=== PATIENT | female | born 1980 | race Two or more races ===

== ENCOUNTER 2020-11-25 11:46 | Emergency (ER) | payer SELFPAY ==
[~2020-11-25] VITALS: Ht 160 cm; Wt 140.0 kg
[2020-11-25 13:49] LABS: BILIRUBIN,URINE NEGATIVE (NEG); CLARITY,URINE CLEAR; COLOR,URINE YELLOW; NITRITE,URINE NEGATIVE (NEG); PH,URINE 6.5 (<5.0-8.0); PROTEIN,URINE NEGATIVE (NEG-TRACE); UROBILINOGEN,URINE 0.2 mg/dL (0.2 mg/dL)
[2020-11-25 14:04] LABS: RBC,URINE 20-40 /HPF (0-2)
[2020-11-25 14:06] LABS: BASO # 0.1 x10^3/uL (0.0-0.2); BASO % 1 % (0-3); EOS # 0.3 x10^3/uL (0.0-0.7); EOS % 3 % (0-3); HEMATOCRIT 38.8 % (36.0-47.0); HEMOGLOBIN 13.1 g/dL (12.0-15.5); LYMPH # 2.6 x10^3/uL (1.0-4.8); LYMPH % 25 % (24-48); MEAN CORPUSCULAR HEMOGLOBIN 30 pg (25-35); MEAN CORPUSCULAR HGB CONC 34 g/dL (31-37); MEAN CORPUSCULAR VOLUME 88 fL (79-100); MONO # 0.6 x10^3/uL (0.0-1.1); MONO % 6 % (0-9); NEUT # 7.2 x10^3/uL (1.8-7.7); NEUT % 67 % (31-73); PLATELET COUNT 313 x10^3/uL (140-400); RED BLOOD COUNT 4.39 x10^6/uL (3.50-5.40); WHITE BLOOD COUNT 10.8 x10^3/uL (4.0-11.0)
[2020-11-25 14:06] LABS: WBC,URINE RARE /HPF (0-4)
[2020-11-25 14:07] LABS: AMORPHOUS SEDIMENT,UR PRESENT /HPF; BACTERIA,URINE 0 /HPF (0-FEW)
[2020-11-25 14:15] LABS: CALCIUM 8.7 mg/dL (8.5-10.1); CREATININE 0.6 mg/dL (0.6-1.0); GFR 110.7; POTASSIUM 3.8 mmol/L (3.5-5.1)
[2020-11-25 14:21] LABS: ALBUMIN 3.4 g/dL (3.4-5.0); ALBUMIN/GLOBULIN RATIO 0.8 (1.0-1.7); TOTAL BILIRUBIN 0.3 mg/dL (0.2-1.0); TOTAL PROTEIN 7.6 g/dL (6.4-8.2)
--- NOTE | 2020-11-25 14:47 | RAD ---
US OB <14 WKS +TV History: Reason: vag bleeding in / Spl. Instructions: / History: Comparison: None. Technique: Grayscale and color Doppler imaging of the pelvis was performed using transabdominal and t ransvaginal technique. Findings: The uterus measures 10.0 x 5.2 x 4.7 cm. Both hips is noted. No definite gestational sac identified. Thickened endometrium with heterogeneous and hyperechoic appe arance. Fluid within the lower endometrium. Right ovary measures 3.4 x 2.2 x 1.8 cm. Left ovary measures 3.8 x 2.2 x 2.2 cm. Dominant right ovarian follicle measures 2.0 cm. Normal Doppler flow to the ovaries bilaterally. No adnexal masses are seen. IMPRESSION: 1. No definite intrauterine gestational sac identified with thickened heterogeneous and hyperechoic appearance of the endometrium. Findings may represent failed early . Recommend comparison wi th prior imaging studies. Electronically signed by: Figueroa Christianson DO (11/25/2020 2:45 PM) [id number]
[2020-11-25 15:53] VITALS: BP 148/101
[2020-11-25] MEDS: MORPHINE SULFATE 10 MG/ML VIAL. IV ONE (16:18)
--- NOTE | 2020-11-25 16:21 | PHYS DOC ---
Past Medical History Past Medical History: No Pertinent History Past Surgical History: No Surgical History Smoking Status: Never Smoker Alcohol Use: None General Adult EDM: Chief Complaint: VAGINAL BLEEDING HPI: HPI: Patient is a 39 year old female 2 para 1 currently 7 weeks presented to the ED today complaining of vaginal bleeding in , symptoms began 7 days ago. She states symptoms began as spotting 7 days ago and since yesterday she has been passing bigger clots. She states she was seen at [facility] a week ago and they did an ultrasound and they told her she was 6 weeks with a sac but they told her they could not see the baby well. Patient is also complaining of moderate low back cramping pain, also complaining of pelvic pain. Patient states she was also treated for STDs at [facility]. She states she is on antibiotics for STDs right now though she does not know the name. She states her periods are irregular and her last menstrual cycle was in June. Review of Systems: Review of Systems: Constitutional: Denies fever or chills. [] Eyes: Denies change in visual acuity. [] HENT: Denies nasal congestion or sore throat. [] Respiratory: Denies cough or shortness of breath. [] Cardiovascular: Denies chest pain or edema. [] GI: Reports vaginal bleeding in , pelvic pain, denies nausea, vomiting, bloody stools or diarrhea. [] : Denies dysuria. [] Musculoskeletal: Reports cramping low back pain Integument: Denies rash. [] Neurologic: Denies headache, focal weakness or sensory changes. [] Psychiatric: Denies depression or anxiety. [] Heart Score: C/O Chest Pain: N/A Risk Factors: Risk Factors: DM, Current or recent (<one month) smoker, HTN, HLP, family history of CAD, obesity. Risk Scores: Score 0 - 3: 2.5% MACE over next 6 weeks - Discharge Home Score 4 - 6: 20.3% MACE over next 6 weeks - Admit for Clinical Observation Score 7 - 10: 72.7% MACE over next 6 weeks - Early Invasive Strategies Current Medications: Current Medications Medications (Trade) Dose Ordered Sig/Shannon Start Time Stop Time Status Last Admin Dose Admin Morphine Sulfate (Morphine Sulfate) 5 mg 1X ONCE 11/25/20 16:00 11/25/20 16:01 UNV Physical Exam: PE: Constitutional: Well developed, well nourished, no acute distress, non-toxic appearance. [] HENT: Normocephalic, atraumatic, bilateral external ears normal, oropharynx moist, no oral exudates, nose normal. [] Eyes: PERRLA, EOMI, conjunctiva normal, no discharge. [] Neck: Normal range of motion, no tenderness, supple, no stridor. [] Cardiovascular:Heart rate regular rhythm, no murmur [] Lungs & Thorax: Bilateral breath sounds clear to auscultation [] Abdomen: Rounded abdomen. Bowel sounds normal, soft, no tenderness, no masses, no pulsatile masses. [] Pelvic exam External pelvic has small amount of bright red blood. Cervix appears open, mild CMT, no adnexal tenderness, small amount of blood clots in the vaginal vault which were removed. Skin: Warm, dry, no erythema, no rash. [] Back: No tenderness, no CVA tenderness. [] Extremities: No tenderness, no cyanosis, no clubbing, ROM intact, no edema. [] Neurologic: Alert and oriented X 3, normal motor function, normal sensory function, no focal deficits noted. [] Psychologic: Affect normal, judgement normal, mood normal. [] Current Patient Data: Labs: Laboratory Tests Test 11/25/20 13:25 11/25/20 13:35 11/25/20 13:52 Urine Collection Type Unknown Urine Color Yellow Urine Clarity Clear Urine pH 6.5 (<5.0-8.0) Urine Specific [place] 1.015 (1.000-1.030) Urine Protein Negative mg/dL (NEG-TRACE) Urine Glucose (UA) Negative mg/dL (NEG) Urine Ketones (Stick) Negative mg/dL (NEG) Urine Blood Large (NEG) Urine Nitrite Negative (NEG) Urine Bilirubin Negative (NEG) Urine Urobilinogen Dipstick 0.2 mg/dL (0.2 mg/dL) Urine Leukocyte Esterase Trace (NEG) Urine RBC 20-40 /HPF (0-2) Urine WBC Rare /HPF (0-4) Urine Squamous Epithelial Cells Mod /LPF Urine Amorphous Sediment Present /HPF Urine Bacteria 0 /HPF (0-FEW) Urine Mucus Slight /LPF POC Urine HCG, Qualitative Hcg positive (Negative) White Blood Count 10.8 x10^3/uL (4.0-11.0) Red Blood Count 4.39 x10^6/uL (3.50-5.40) Hemoglobin 13.1 g/dL (12.0-15.5) Hematocrit 38.8 % (36.0-47.0) Mean Corpuscular Volume 88 fL (79-100) Mean Corpuscular Hemoglobin 30 pg (25-35) Mean Corpuscular Hemoglobin Concent 34 g/dL (31-37) Red Cell Distribution Width 14.0 % (11.5-14.5) Platelet Count 313 x10^3/uL (140-400) Neutrophils (%) (Auto) 67 % (31-73) Lymphocytes (%) (Auto) 25 % (24-48) Monocytes (%) (Auto) 6 % (0-9) Eosinophils (%) (Auto) 3 % (0-3) Basophils (%) (Auto) 1 % (0-3) Neutrophils # (Auto) 7.2 x10^3/uL (1.8-7.7) Lymphocytes # (Auto) 2.6 x10^3/uL (1.0-4.8) Monocytes # (Auto) 0.6 x10^3/uL (0.0-1.1) Eosinophils # (Auto) 0.3 x10^3/uL (0.0-0.7) Basophils # (Auto) 0.1 x10^3/uL (0.0-0.2) Maternal Serum HCG Beta Subunit 5230 mIU/mL (0-5) H Sodium Level 140 mmol/L (136-145) Potassium Level 3.8 mmol/L (3.5-5.1) Chloride Level 102 mmol/L (98-107) Carbon Dioxide Level 28 mmol/L (21-32) Anion Gap 10 (6-14) Blood Urea Nitrogen 9 mg/dL (7-20) Creatinine 0.6 mg/dL (0.6-1.0) Estimated GFR (Cockcroft-Gault) 110.7 BUN/Creatinine Ratio 15 (6-20) Glucose Level 117 mg/dL (70-99) H Calcium Level 8.7 mg/dL (8.5-10.1) Total Bilirubin 0.3 mg/dL (0.2-1.0) Aspartate Amino Transferase (AST) 23 U/L (15-37) Alanine Aminotransferase (ALT) 37 U/L (14-59) Alkaline Phosphatase 74 U/L (46-116) Total Protein 7.6 g/dL (6.4-8.2) Albumin 3.4 g/dL (3.4-5.0) Albumin/Globulin Ratio 0.8 (1.0-1.7) L Laboratory Tests 11/25/20 13:52 Laboratory Tests 11/25/20 13:52 Vital Signs: Vital Signs Date Time Temp Pulse Resp B/P (MAP) Pulse Ox O2 Delivery O2 Flow Rate FiO2 11/25/20 15:53 97 148/101 (117) 100 Room Air 11/25/20 12:34 97.8 20 97.8 EKG: EKG: [] Radiology/Procedures: Radiology/Procedures: []PROCEDURE: OB <14 WKS W/TV US OB <14 WKS +TV History: Reason: vag bleeding in / Spl. Instructions: / History: Comparison: None. Technique: Grayscale and color Doppler imaging of the pelvis was performed using transabdominal and transvaginal technique. Findings: The uterus measures 10.0 x 5.2 x 4.7 cm. Both hips is noted. No definite gestational sac identified. Thickened endometrium with heterogeneous and hyperechoic appearance. Fluid within the lower endometrium. Right ovary measures 3.4 x 2.2 x 1.8 cm. Left ovary measures 3.8 x 2.2 x 2.2 cm. Dominant right ovarian follicle measures 2.0 cm. Normal Doppler flow to the ovaries bilaterally. No adnexal masses are seen. IMPRESSION: 1. No definite intrauterine gestational sac identified with thickened heterogeneous and hyperechoic appearance of the endometrium. Findings may represent failed early . Recommend comparison with prior imaging studies. Electronically signed by: Figueroa Alvares DO (11/25/2020 2:45 PM) [id number] DICTATED and SIGNED BY: FIGUEROA ALVARES DO DATE: 11/25/20 [id number] 0 Course & Med Decision Making: Course & Med Decision Making Pertinent Labs and Imaging studies reviewed. (See chart for details) This is a 39-year-old female patient presented to the ED today complaining of pelvic pain, low back pain, vaginal bleeding in , symptoms began a week ago as spotting and since yesterday she reports passing bigger clots. Patient reports being seen at [facility] a week ago and had a sonogram done that showed she had a sac in her uterus but she was told they could not see the baby well. CBC with a normal hemoglobin and hematocrit, CMP with no acute findings, positive urine hCG, beta-hCG 5230 Blood group B+ OB ultrasound no definite intrauterine gestational sac identified with thickened heterogeneous and hyperechoic appearance of the endometrium. Findings may represent failed early . Recommend comparison with prior imaging studies. D/c to home with f/u with OB in 1-2 days for BEta HCG. Bed rest recommended. Dragon Disclaimer: [employer] Disclaimer: This electronic medical record was generated, in whole or in part, using a voice recognition dictation system. Departure Departure Impression: Primary Impression: Threatened miscarriage Disposition: HOME / SELF CARE / HOMELESS Condition: STABLE Referrals: UNKNOWN PCP NAME (PCP) JAIME ALVARES MD follow up in 1-2 days Patient Instructions: Threatened Miscarriage, [id number] Additional Instructions: You were seen for vaginal bleeding in . Your beta-hCG today was 5230, the OB ultrasound was not able to find a sac in your uterus. This could be an early though the likely you are having a miscarriage is high. Please observe pelvic rest, no strenuous activities, no heavy lifting, no sex. Please follow-up with your [facility] in the next 1 to 2 days for beta-hCG/ levels. If this is a miscarriage expect to bleed heavy. Come back to the ED at any point symptoms worsen. JENNIFER MCKAY APRN Nov 25, 2020 16:21
== END 2020-11-25 16:44 | disposition home or self-care (01) ==
LOC: ER 11:46
DX: O20.0 Threatened abortion (principal); R10.2 Pelvic and perineal pain; Z3A.01 Less than 8 weeks gestation of pregnancy
CPT/HCPCS: 36415; 76801; 76817; 80053; 81001; 81025; 84702; 85025; 86850; 86900; 86901; 87086; 96374; 99284; J2270